=== PATIENT | female | born 1960 | race African-American/Black ===

== ENCOUNTER 2016-04-22 04:58 | Emergency (ER) | payer OTHER ==
[~2016-04-22] VITALS: Ht 152.4 cm; Wt 64.9 kg
[2016-04-22] MEDS ORDERED: BENZONATATE 100 MG CAPSULE. PO ONE (06:00)
[2016-04-22] MEDS ORDERED: IBUPROFEN 600 MG TABLET. PO ONE (06:00)
[2016-04-22 06:03] LABS: OBC FLU VALID
[2016-04-22] MEDS ORDERED: OSELTAMIVIR 75 MG CAPSULE PO ONE (06:30)
[2016-04-22] MEDS ORDERED: BENZ100C PO (06:55)
[2016-04-22] MEDS ORDERED: OSEL75CA PO (06:55)
[2016-04-22 07:00] VITALS: BP 120/75
--- NOTE | 2016-04-22 08:11 | ED.ADGEN ---
Past Medical History Past Medical History: Other Additional Past Medical Histor: Thyroid, TIA Past Surgical History: Alcohol Use: None Drug Use: None Adult General Chief Complaint Chief Complaint: FLU SYMPTOM HPI HPI Patient is a 55 year old woman, history of hypothyroidism, TIA, who presents emergency Department with a complaint of fevers, chills, generalized malaise, cough. Positive for sick contacts in her family, including her to his recently hospitalized for influenza. Patient's symptoms began yesterday, did not check her temperature at home but believes that she was febrile as stated. Home medications prior to arrival, is afebrile at this time. Denies a recent travel or surgery, history of DVT or PE, any shortness of breath, complains of chest pain with coughing. Nausea, with decreased appetite, no vomiting or diarrhea. No abdominal pain, no swelling extremities. No history of DVT or PE. Review of Systems Review of Systems Constitutional: Fever and chills. Generalized malaise. Eyes: Denies change in visual acuity. [] HENT: Denies nasal congestion or sore throat. [] Respiratory: Cough, no shortness of breath.] Cardiovascular: Chest pain with cough, no edema. GI: Denies abdominal pain, nausea, vomiting, bloody stools or diarrhea. [] : Denies dysuria. [] Musculoskeletal: Denies back pain or joint pain. [] Integument: Denies rash. [] Neurologic: Denies headache, focal weakness or sensory changes. [] Endocrine: Denies polyuria or polydipsia. [] Lymphatic: Denies swollen glands. [] Psychiatric: Denies depression or anxiety. [] Current Medications Current Medications Current Medications Medications (Trade) Dose Ordered Sig/Roberto Start Time Stop Time Status Last Admin Dose Admin Benzonatate (Tessalon Perle) 100 mg 1X ONCE 04/22/16 06:00 04/22/16 06:01 DC 04/22/16 05:50 100 MG Ibuprofen (Motrin) 600 mg 1X ONCE 04/22/16 06:00 04/22/16 06:01 DC Oseltamivir Phosphate (Tamiflu) 75 mg 1X ONCE 04/22/16 06:30 04/22/16 06:31 DC 04/22/16 06:17 75 MG Allergies Allergies Allergies Coded Allergies Type Severity Reaction Last Updated Verified aspirin Allergy Intermediate 04/22/16 Yes Physical Exam Physical Exam Constitutional: Well developed, well nourished, no acute distress, ill in appearance. [] HENT: Normocephalic, atraumatic, bilateral external ears normal, oropharynx moist, no oral exudates, bilateral turbinate swelling with rhinorrhea. No exudates. Eyes: PERRLA, EOMI, conjunctiva normal, no discharge. [] Neck: Normal range of motion, no tenderness, supple, no stridor. [] Cardiovascular:Heart rate regular rhythm, no murmur, S1, S2, rubs or gallops. [] Lungs & Thorax: Bilateral breath sounds clear to auscultation, no wheezing, rhonchi, rales. No chest wall crepitus, patient with mild tenderness in the lower ribs. No external signs of trauma no lesions. Abdomen: Bowel sounds normal, soft, no tenderness, no masses, no pulsatile masses. [] Skin: Warm, dry, no erythema, no rash. [] Back: No tenderness, no CVA tenderness. [] Extremities: No tenderness, no cyanosis, no clubbing, ROM intact, no edema. Negative Homans sign. [] Neurologic: Alert and oriented X 3, normal motor function, normal sensory function, no focal deficits noted. [] Psychologic: Affect normal, judgement normal, mood normal. [] Current Patient Data Vital Signs Vital Signs Date Time Temp Pulse Resp B/P Pulse Ox O2 Delivery O2 Flow Rate FiO2 04/22/16 07:00 108 18 120/75 97 Room Air 04/22/16 05:29 98.7 98.7 Lab Values Laboratory Tests Test 04/22/16 05:35 Influenza Type A Antigen Positive (NEGATIVE) Influenza Type B Antigen Negative (NEGATIVE) EKG EKG ECG: Sinus rhythm, heart rate 96 bpm, no ectopy. As interpreted by me. [] Radiology/Procedures Radiology/Procedures Not indicated. [] Course & Med Decision Making Course & Med Decision Making Pertinent Labs and Imaging studies reviewed. (See chart for details) No evidence of lower airspace disease. Patient with mild tachycardia at times at rest, up to 101 bpm, blood pressure is within normal limits, oxygenation saturation is 96-100% on room air. Respiratory rate is 20 and unlabored. Examination and history is consistent with a flu infection, as patient is within the first 48 hours of infection, and because of her no sick contacts, insulin as a swab obtained, which was positive for insulin to take a. Patient was offered Tamiflu, which she did accept the emergency room, first dose was given, along with prescription for 5 days of treatment to diminish symptoms. Patient received ibuprofen in the emergency room, Beulahsalklever Perle. On reevaluation she states she is feeling better. An amply to the emergency department, heart rate from the 90s to 110, oxygen saturation 96-100%, patient denied any dizziness lightheadedness or other concerning symptoms. States that she is ready to go home. We did discuss the use of supportive measures, and concerning symptoms that prompt return, and follow-up. Patient instructed not to return to work until she is fever free for 24 hours without antipyretics. Patient voiced understanding and agreement with instructions and precautions, discharged home in stable condition with prescription for Tamiflu, Tessalon Perle, to follow-up as directed and to return to the ED for concerning symptoms as discussed. Dragon Disclaimer Dragon Disclaimer This electronic medical record was generated, in whole or in part, using a voice recognition dictation system. Departure Impression: Primary Impression: Influenza A Disposition: HOME, SELF-CARE Condition: IMPROVED Scripts Oseltamivir Phosphate (Tamiflu)75 Mg [id number] Mg PO BID FLU #9 TAB Ref 0 1 tablet twice daily for 5 days. First dose given in the emergency department. Prov:YEN VIRGEN DO 04/22/16 Benzonatate (Tessalon Perle)100 Mg [id number] Mg PO TID PRN COUGH #12 CAP Prov:YEN VIRGEN DO 04/22/16 YEN VIRGEN DO Apr 22, 2016 08:11
== END 2016-04-22 07:07 | disposition home or self-care (01) ==
LOC: ER 04:58
DX: J09.X2 Influenza due to identified novel influenza A virus with other respiratory manifestations (principal); E03.9 Hypothyroidism, unspecified; Z86.73 Personal history of transient ischemic attack (TIA), and cerebral infarction without residual deficits; Z88.6 Allergy status to analgesic agent
CPT/HCPCS: 87804; 99284